=== PATIENT | female | born 1980 | race Two or more races ===

== ENCOUNTER 2024-04-27 01:36 | Emergency (ER) | payer OTHER ==
[~2024-04-27] VITALS: Ht 149.9 cm; Wt 49.0 kg
[2024-04-27] MEDS ORDERED: EZALLOR SPRINKLE5 MG (01:58)
[2024-04-27] MEDS ORDERED: ORPHENADRINE CITRATE 30 MG/ML AMPUL IM STA (03:40)
[2024-04-27] MEDS ORDERED: ORPHENADRINE CITRATE 30 MG/ML AMPUL ONE (03:43)
== END 2024-04-27 04:02 | disposition home or self-care (01) ==
LOC: ER 01:38
DX: M62.830 Muscle spasm of back (principal)